=== PATIENT | female | born 1960 | race Caucasian/White ===

== ENCOUNTER → 2018-06-11 | Outpatient (CLI) | payer BC ==
--- NOTE | 2018-06-12 11:58 | MM ---
Reason for exam: screening (asymptomatic). Last mammogram was performed 3 years and 4 months ago. History: Taking other hormone for 20 years. Physical Findings: A clinical breast exam by your physician is recommended on an annual basis and results should be correlated with mammographic findings. MG Screening Mammo w CAD Bilateral CC and MLO view(s) were taken. Prior study comparison: February 09, 2015, bilateral MG screening mammo w CAD. April 28, 2010, bilateral digital screening mammo w/CAD. The breast tissue is heterogeneously dense. This may lower the sensitivity of mammography. There are benign appearing round calcifications bilaterally. Asymmetric breast tissue right upper outer quadrant posterior position, stable. Developing asymmetry left middle depth outer aspect. ASSESSMENT: Incomplete: need additional imaging evaluation, BI-RAD 0 RECOMMENDATION: Special view mammogram of the left breast. If lesion persists on supplemental views, image directed ultrasound is recommended. [facility] will attempt to contact patient to return for supplemental views and ultrasound if indicated.
== END ==
LOC: RADMAMWWP 08:02
PROVIDERS: ATTEND Family Medicine
DX: Z12.31 Encounter for screening mammogram for malignant neoplasm of breast (principal)
CPT/HCPCS: 77067

== ENCOUNTER → 2018-06-24 | Outpatient (CLI) | payer BC ==
--- NOTE | 2018-06-25 07:59 | MM ---
Reason for exam: additional evaluation requested from abnormal screening. Last mammogram was performed less than 1 month ago. History: Patient is postmenopausal. Taking other hormone for 20 years. Physical Findings: Nurse did not find any significant physical abnormalities on exam. MG Work Up Mamm w CAD LT CC and LM view(s) were taken of the left breast. Prior study comparison: June 11, 2018, bilateral MG screening mammo w CAD. February 09, 2015, bilateral MG screening mammo w CAD. The breast tissue is heterogeneously dense. This may lower the sensitivity of mammography. Lateral asymmetric densities disperse on additional view. Inferior nodular asymmetry on the lateral view persists. These results were verbally communicated with the patient and result sheet given to the patient on 06/24/18. ASSESSMENT: Incomplete: need additional imaging evaluation, BI-RAD 0 RECOMMENDATION: Ultrasound of the left breast. (inferior half)
--- NOTE | 2018-06-25 08:00 | USB ---
Reason for exam: additional evaluation requested from abnormal screening. History: Patient is postmenopausal. Taking other hormone for 20 years. US Breast Workup Limited LT Left limited breast ultrasound including focal area of concern, retroareolar and axilla demonstrates no cystic or solid lesion seen. Scanned 3-9 o'clock. 6 month follow up recommended. These results were verbally communicated with the patient and result sheet given to the patient on 06/24/18. ASSESSMENT: Probably benign, BI-RAD 3 RECOMMENDATION: Follow-up diagnostic mammogram of the left breast in 6 months.
== END | disposition home or self-care (01) ==
LOC: RADMAMWWP 14:07
PROVIDERS: ATTEND Family Medicine
DX: R92.8 Other abnormal and inconclusive findings on diagnostic imaging of breast (principal)
CPT/HCPCS: 77065

== ENCOUNTER → 2024-01-07 | Outpatient (CLI) | payer BC ==
--- NOTE | 2024-01-07 15:15 | XR ---
EXAMINATION TYPE: XR foot complete 3 views RT, XR calcaneus 2V RT DATE OF EXAM: 01/07/2024 COMPARISON: NONE HISTORY: 63-year-old female M76.60, pain since injury 4 months ago FINDINGS: Os peroneum noted. Type I versus type II accessory navicular noted. Small posterior and meagan ntar heel spurs. There is some plantar ligament ossification along the hindfoot suggesting sequela of old injuries. Some possible lucencies within the proximal and mid cuboid on the oblique view of the foot and within the inferior distal calcaneus on the lateral views. Enthesopathy at the base of the f ifth metatarsal. Subtalar joint appears aligned. IMPRESSION: 1. Some lucencies along the distal inferior calcaneus on the lateral views and within the proximal to mid cuboid on the oblique view may be projectional. In the setting of trauma, consider further CT ev aluation to exclude subtle nondisplaced fractures. 2. Sequela of old ligamentous injuries along the plantar hindfoot giving soft tissue ossification her e. [facility], , 01/07/2024 3:13 PM
== END | disposition home or self-care (01) ==
LOC: RADXRMAIN 14:30
PROVIDERS: ATTEND Family Medicine
DX: M79.671 Pain in right foot (principal); M76.60 Achilles tendinitis, unspecified leg

== ENCOUNTER → 2024-09-05 | Outpatient (CLI) | payer OTHER ==
--- NOTE | 2024-09-05 14:04 | XR ---
EXAMINATION TYPE: XR shoulder complete RT DATE OF EXAM: 09/05/2024 1:59 PM COMPARISON: None. CLINICAL INDICATION: Female, 63 years old with history of S64.011A STRAIN OF MUSC/TEND THE ROTATOR CU FF OF R, Pain TECHNIQUE: XR shoulder complete RT view(s) obtained. FINDINGS: The humeral head articulates with the glenoid. The acromio-clavicular junction is normal. No acute fractures or dislocations are evident. A follow up study can be performed 7-10 days from acute trauma for continued pain. MRI can be perfor med if soft tissue evaluation would be of benefit. IMPRESSION: 1. No acute osseous shoulder abnormality. [facility], , 09/05/2024 2:02 PM
== END | disposition home or self-care (01) ==
LOC: RADXRMAIN 13:38
PROVIDERS: ATTEND Emergency Medicine
DX: S46.011A Strain of muscle(s) and tendon(s) of the rotator cuff of right shoulder, initial encounter (principal); X58.XXXA Exposure to other specified factors, initial encounter